=== PATIENT | male | born 1970 | race Caucasian/White ===

== ENCOUNTER 2023-11-30 05:08 | Observation (INO) ==
--- NOTE | 2023-11-27 14:56 | Anesthesiology Consultation ---
Date of Service November 27, 2023 Assessment & Plan (1) Encounter for pre-operative examination: Plan - surgery re-scheduled per PAT RN due to burn on wrist. - S/P Right TSA (09/08/23): Grade view 1, Glidescope#4, ETT 8.0 + regional at [facility]. - Per home security alarm installer on 11/22/23: No known infectious disease contacts, current infectious disease symptoms in past 10 days or COVID positive test result in the past 30 days. Chart Review Chart Review: Acceptable Risk for Surgery (pending anesthesiologist evaluation am DOS) and Patient NOT seen in Pre Admission Testing History Surgery Operation Date: 11/30/23 07:00 Proposed Procedures p T12-L1 Posterior Lumbar Decompression with Posterior Instrumentation and Fusion, L1-L2 Posterior Lumbar Decompression, with Spinal Cord Monitoring - Wilfredo Angela MD Height/Weight Height: 6 ft Weight: 121.109 kg Allergies Allergy/AdvReac Type Severity Reaction Status Date / Time No Known Allergies Allergy Verified 11/22/23 11:41 Medications Home Medications Medication Instructions Recorded Confirmed Last Taken hydroxychloroquine 200 mg tablet 200 mg PO BID 07/26/23 11/22/23 11/18/23 20:00 (Plaquenil) losartan 50 mg tablet 50 mg PO QAM 07/26/23 11/22/23 11/18/23 20:00 pregabalin 200 mg capsule 200 mg PO TID 07/26/23 11/22/23 11/18/23 20:00 tizanidine 4 mg tablet (Zanaflex) 4 mg PO BID PRN muscle spasticity 11/21/23 11/22/23 11/18/23 20:00 Past Medical History Medical History Chronic back pain Degenerative disc disease 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 Lumbar disc herniation Severe back pain > bilateral leg numbness Lumbar stenosis with neurogenic claudication Osteoarthritis Rheumatoid arthritis Past Family History Family History Other No family history of adverse response to anesthesia Past Surgical History Surgical History 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 (able to reattach left middle finger) History of tonsillectomy History of total replacement of right shoulder joint Right TSA (09/08/23): Grade view 1, Glidescope#4, ETT 8.0 + regional at [facility] S/P ACL reconstruction right S/P ACL repair left S/P arthroscopy of left shoulder S/P arthroscopy of right shoulder S/P lumbar fusion L4/L5 Social History Smoking Status: Never smoker Do You Dip or Chew Tobacco: No Hx Alcohol Use: Yes Alcohol type: beer, wine and hard liquor alcohol intake frequency: a few times a month Hx Substance Use: No substance use type: does not use Lab Results Anesthesia Preop Results Results Anesthesia Widget: WBC 5.17 K/ul (4.8-10.8) 11/06/23 Hgb 15.0 g/dl (14.0-18.0) 11/06/23 Hct 43.1 % (42.0-52.0) 11/06/23 Plt 206 K/uL (130-400) 11/06/23 Na 141 mmol/L (136-145) 11/06/23 K 3.8 mmol/L (3.5-5.1) 11/06/23 Cl 105 mmol/L (98-107) 11/06/23 CO2 29 mmol/L (21-32) 11/06/23 BUN 19 mg/dl (6-23) 11/06/23 Creat 0.94 mg/dl (0.6-1.4) 11/06/23 Glucose Level 76 mg/dl (70-99(Fasting)) 11/06/23 PT 10.6 Seconds (9.0-12.0) 11/06/23 PTT 24 Seconds (21-31) 11/06/23 INR 1.0 (0.9-1.1) 11/06/23 Blood Type A Positive 11/06/23 Antibody Screen NEGATIVE 11/06/23 Testing Electrocardiogram Date: 08/08/23 NSR at 91bpm. "Normal ECG" Chest X-Ray Date: 08/08/23 FINDINGS: PA and lateral chest radiographs are obtained. No prior studies are available for comparison at the time of dictation. The cardiomediastinal silhouette is top normal for projection. The lungs and pleural spaces are clear. There is no pneumothorax. The bony thorax appears intact. IMPRESSION: No active disease in the chest. Cervical Spine Date: 08/08/23 FINDINGS: Alignment of the cervical spine is anatomic. There is no evidence for cervical spine instability during flexion or extension. C1-C2 alignment remains anatomic. Inferior endplate of C7 is slightly obscured. Moderate multilevel degenerative disc disease and facet arthrosis is present. No fractures are identified. IMPRESSION: No evidence for cervical spine instability during flexion or extension. No fractures within the cervical spine. Moderate multilevel degenerative disc disease and facet arthrosis.
[2023-11-30] MEDS: LR 15ML/HR IV SCH (05:42)
[2023-11-30] MEDS: LR 60ML/HR IV SCH (05:59)
[2023-11-30] MEDS ORDERED: ONDANSETRON INJ 2 MG/ML 2 ML VIAL IV PRN ×2 (06:53→12:35)
[2023-11-30] MEDS ORDERED: ePHEDrine sulfate 50 MG/ML AMP IV PRN (06:53)
[2023-11-30] MEDS ORDERED: PROMETHAZINE HCL 12.5 MG in SODIUM CHLORIDE 0.9% 50 ML IV PRN (06:53)
[2023-11-30] MEDS ORDERED: ATROPINE SULFATE 0.1 MG/ML 10ML SYR IV PRN (06:53)
[2023-11-30] MEDS ORDERED: KETAMINE HCL 10MG/ML SYR ONE ×2 (06:55→10:38)
[2023-11-30] MEDS ORDERED: MIDAZOLAM HCL 1 MG/ML 2ML VIAL ONE (06:55)
[2023-11-30] MEDS ORDERED: fentaNYL citrate PF 100 MCG/2 ML VIAL ONE ×3 (06:55→12:14)
--- NOTE | 2023-11-30 07:03 | History & Physical Bridge Note ---
Date of Service November 30, 2023 T12-L1 decompression/fusion with decompression at L1-2 and L2-3 History & Physical Bridge Note I have examined the patient, reviewed the History & Physical and in the interval since the performance of the History & Physical I have noted the following changes of clinical significance: no changes noted
[2023-11-30] MEDS: ceFAZolin 3000MG 3,000 MG/72.5 ML BAG IV SCH (07:15)
[2023-11-30] MEDS ORDERED: PROPOFOL IV EMULSION 10 MG/ML 20 ML VIAL IV ONE ×16 (07:16→11:34)
[2023-11-30] MEDS ORDERED: PHENYLEPHRINE 100MCG/ML 10ML SYR IV ONE ×2 (08:18→09:52)
[2023-11-30] MEDS ORDERED: SUCCINYLCHOLINE CHLORIDE 20 MG/ML 10 ML VIAL IV ONE (08:19)
[2023-11-30] MEDS ORDERED: ROCURONIUM BROMIDE 10 MG/ML 5 ML VIAL IV ONE (08:19)
[2023-11-30] MEDS ORDERED: LIDOCAINE 2% 2 ML VIAL/AMP(20MG/ML) INFIL ONE (08:19)
[2023-11-30] MEDS ORDERED: DEXAMETHASONE SOD INJ 4 MG/ML VIAL ONE (08:55)
[2023-11-30] MEDS: BUPIVACAINE/EPINEPHRINE 0.5% MPF 1:200,000 30 ML VIAL ONE (11:55)
[2023-11-30] MEDS: VANCOMYCIN HCL 1000MG/20ML VIAL ONE (11:56)
[2023-11-30] MEDS: THROMBIN 5000 UNITS KIT ONE (11:56)
[2023-11-30] MEDS: GELATIN SPONGE 12-7MM ONE (11:56)
[2023-11-30] MEDS ORDERED: ONDANSETRON INJ 2 MG/ML 2 ML VIAL ONE (12:01)
[2023-11-30] MEDS: FLOSEAL HEMOSTATIC MATRIX 10ML TOP ONE (12:03)
[2023-11-30] MEDS ORDERED: KETOROLAC 30 MG/ML VIAL ONE (12:20)
--- NOTE | 2023-11-30 12:34 | Post Operative Brief Note ---
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
[2023-11-30] MEDS ORDERED: DO NOT ADMINISTER FLU VACCINE PRN (12:35)
[2023-11-30] MEDS ORDERED: ALUMINUM/MAGNESIUM SUSP 30 ML UDC PO PRN (12:35)
[2023-11-30] MEDS ORDERED: NALOXONE HCL 0.4 MG/1 ML VIAL/CARP IV PRN (12:35)
[2023-11-30] MEDS ORDERED: ONDANSETRON 4 MG OD TAB PO PRN (12:35)
[2023-11-30] MEDS ORDERED: HYDROmorphone INJ 0.5 MG/0.5 ML SYR IV PRN (12:35)
[2023-11-30] MEDS ORDERED: PROMETHAZINE 12.5 MG/50.5 ML BAG IV PRN (12:35)
[2023-11-30] MEDS ORDERED: LORazepam 0.5 MG in SYRINGE 0.25 ML IV PRN (12:35)
[2023-11-30] MEDS ORDERED: diphenhydrAMINE Capsule 25 MG CAP PO PRN (12:35)
[2023-11-30] MEDS ORDERED: bisacodyL 10 MG SUPP PR PRN (12:35)
[2023-11-30] MEDS ORDERED: SOD PHOSPHATE/SOD BIPHOSPHATE ENEMA 132 ML BTL PR PRN (12:35)
[2023-11-30] MEDS ORDERED: DO NOT ADMINISTER PNEUMOCOCCAL VACCINE PRN (12:35)
[2023-11-30] MEDS ORDERED: hydrOXYzine HCl 25 MG TAB PO PRN (12:35)
[2023-11-30] MEDS ORDERED: ACETAMINOPHEN 500 MG TAB PO PRN (12:35)
[2023-11-30] MEDS ORDERED: FAMOTIDINE 20 MG TAB PO PRN (12:35)
[2023-11-30] MEDS ORDERED: LORazepam 0.5 MG TAB PO PRN (12:35)
[2023-11-30] MEDS ORDERED: MAGNESIUM HYDROXIDE SUSP 30 ML UDC PO PRN (12:35)
[2023-11-30] MEDS ORDERED: METOCLOPRAMIDE HCL INJ 5 MG/ML 2 ML VIAL IV PRN (12:35)
--- NOTE | 2023-11-30 13:04 | Fluoroscopy Report ---
INTRAOPERATIVE RADIOGRAPHS CLINICAL HISTORY: Spinal fusion surgery. Fluoro time: 51 seconds Ka,r: 68.42 mGy FINDINGS: 4 spot fluoroscopic views of the thoracolumbar spine are presented. There is evidence of la minectomy and posterior fusion. The surgical levels cannot be delineated on the provided images. IMPRESSION: Intraoperative images from thoracolumbar spinal fusion surgery as above. Electronically signed by: Sander Miranda M.D. 11/30/2023 1:03 PM
[2023-11-30] MEDS: fentaNYL citrate PF 100 MCG/2 ML VIAL IV PRN (13:05)
[2023-11-30] MEDS: HYDROmorphone INJ 2 MG/ML SYR/VIAL IV PRN (13:15)
--- NOTE | 2023-11-30 13:35 | Anesthesiology Progress Note ---
Date of Service November 30, 2023 Anesthesia Post Procedure Vital Signs Vital Signs: Temp Pulse Pulse Resp BP Pulse Ox O2 Del Method 11/30/23 13:25 81 12 118/87 98 Oxymask 11/30/23 13:15 79 12 138/89 96 Oxymask 11/30/23 13:05 78 12 109/84 98 Oxymask 11/30/23 12:55 79 16 117/80 97 Oxymask 11/30/23 12:45 36.0 C L 83 14 125/74 96 Oxymask 11/30/23 05:45 36.9 C 85 20 136/88 95 Room Air O2 Flow Rate 11/30/23 13:25 4 11/30/23 13:15 4 11/30/23 13:05 6 11/30/23 12:55 6 11/30/23 12:45 6 11/30/23 05:45 Pain Intensity Medial Back: Pain Intensity: 7 Bilateral Leg: Pain Intensity: 8 Transfer of Care Handoff Completed per policy Notes Mental Status: alert / awake / arousable Patient Amnestic to Procedure: Yes Nausea / Vomiting: adequately controlled Pain: adequately controlled Airway Patency, RR, SpO2: stable & adequate BP & HR: stable & adequate Hydration State: stable & adequate Anesthetic Complications: no major complications apparent and Pt Satisfied with anesthetic care
[2023-11-30] MEDS ORDERED: tiZANidine HCL 4 MG TABLET PO PRN (14:21)
[2023-11-30] MEDS: PREGABALIN 100 MG CAP PO SCH (15:25)
--- NOTE | 2023-11-30 15:35 | Hospitalist Consultation ---
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 Lumbar spinal stenosis status post lumbar spine decompression posteriorly T12/L1-L1/L2-L2/L3 postop day 0. At this point doing well postoperatively. 2. Hypertension. Home losartan's been ordered. Will monitor blood pressure. 3. History of rheumatoid arthritis. Appears to be on Plaquenil. 4. Osteoarthritis. 5. Degenerative disc disease. Plan: A.m. labs. Home medications. Please refer to orders for further planning. Thank you for the opportunity participate in the care of Mr. Hill as he continues to convalesce his lumbar spine surgery. Will continue to follow on a daily basis and as needed as medical needs arise. History of Present Illness Reason for Consultation: Medical management Attending Physician: Wilfredo Angela MD History of Present Illness This is a 53-year-old male who presented to [facility] this morning to undergo elective orthopedic spine surgery where he underwent a T12/L1-L1/L2-L2/L3 posterior left-sided decompression. Patient tolerated procedure well without any apparent complications. The patient was admitted to the orthopedic spine surgery service and hospitalist consult was placed for medical management. 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 Lumbar disc herniation Severe back pain > bilateral leg numbness Lumbar stenosis with neurogenic claudication Osteoarthritis Rheumatoid arthritis Surgical History 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 (able to reattach left middle finger) History of tonsillectomy History of total replacement of right shoulder joint Right TSA (09/08/23): Grade view 1, Glidescope#4, ETT 8.0 + regional at [facility] S/P ACL reconstruction right S/P ACL repair left S/P arthroscopy of left shoulder S/P arthroscopy of right shoulder S/P lumbar fusion L4/L5 Family History Other No family history of adverse response to anesthesia Social History Smoking Status: Never smoker Second Hand Exposure: No; Do You Dip or Chew Tobacco: No; Tobacco Cessation Education Requested by Patient: No Hx Alcohol Use: Yes Alcohol type: beer, wine and hard liquor Hx Substance Use: No Preferred Language: Irish Communication Ability: Effective Bomb Squad Officer Required: No Beliefs That Will Affect Care: None Current Living Situation: Significant Other Other Information That Helps Us Care for You: No Feels Safe at Home: Yes Safety Concerns: Feels Safe At This Time Assistive Devices: None Review of Systems Review of Systems: A 10 point review of system was obtained and unless otherwise stated here or in history of present illness are negative and noncontributory to chief complaint. Physical Exam Physical Exam: In General: In general 53-year-old male who is status post lumbar spine surgery today. He is doing well. He has been drinking but not eaten since surgery but he is starting to get hungry. Has no specific complaints except minor postoperative pain not out of proportion to his procedure. HEENT: Normocephalic atraumatic pupils are equal round and reactive to light bilaterally. No scleral icterus no conjunctival injection external auditory canals are patent septum is in the midline nose is without discharge oral mucosa is pink and moist without lesion. NECK: Supple no rigidity no lymphadenopathy no thyromegaly no carotid bruits no JVD no masses. HEART: Regular rate and rhythm I do not appreciate any ectopy or rub. No murmur. LUNGS: Clear to auscultation bilaterally and anteriorly with no evidence of adventitious sounds/wheezes rales or rhonchi. ABDOMEN: Soft nontender, no rebound, no peritoneal signs, positive bowel sounds, no appreciable organomegaly. EXTREMITIES: Neurovascularly the lower extremities are intact. There is no significant edema. NEUROLOGICAL: Grossly intact with no focal deficit on exam. Results & Data Results & Data Vital Signs (Past 12 Hours) Vital Signs Temp Pulse Pulse Resp BP BP Pulse Ox 11/30/23 15:07 35.8 C L 80 16 133/94 99 11/30/23 14:43 36.4 C L 11/30/23 14:35 73 18 123/82 96 11/30/23 14:07 36.4 C L 79 16 122/84 96 11/30/23 13:50 76 14 117/84 96 11/30/23 13:35 36.5 C 74 12 120/94 95 11/30/23 13:25 81 12 118/87 98 11/30/23 13:15 79 12 138/89 96 11/30/23 13:05 78 12 109/84 98 11/30/23 12:55 79 16 117/80 97 11/30/23 12:45 36.0 C L 83 14 125/74 96 11/30/23 05:45 36.9 C 85 20 136/88 95 O2 Del Method O2 Flow Rate 11/30/23 15:07 Nasal Cannula 3 11/30/23 14:43 11/30/23 14:35 Nasal Cannula 5 11/30/23 14:07 Nasal Cannula 3 11/30/23 13:50 Nasal Cannula 3 11/30/23 13:35 Nasal Cannula 3 11/30/23 13:25 Oxymask 4 11/30/23 13:15 Oxymask 4 11/30/23 13:05 Oxymask 6 11/30/23 12:55 Oxymask 6 11/30/23 12:45 Oxymask 6 11/30/23 05:45 Room Air PG Care Time/CCT Total # of Minutes Spent Total Time Spent with Patient: Total time spent is greater than 50% in coordination of care (as documented) at patient's floor/unit and/or counseling patient: Coding Level of Care Code 61198 IN/OBS CONSULT LVL 4,60M Diagnoses 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
[2023-11-30] MEDS: LACTATED RINGER'S 1,000 ML IV SCH (16:11)
[2023-11-30] MEDS: ACETAMINOPHEN 1,000 MG/100 ML VIAL IV PRN (16:21)
[2023-11-30] MEDS: ceFAZolin 2000MG 2,000 MG/15 ML SYR IV SCH (18:30)
[2023-11-30] MEDS: oxyCODONE/ACETAMINOPHEN 5mg/325mg TAB PO PRN (18:38)
[2023-11-30] MEDS: HYDROXYCHLOROQUINE SULFATE 200 MG TAB PO SCH (20:15)
[2023-11-30] MEDS: DOCUSATE SODIUM/SENNA 50/8.6MG TAB PO SCH (20:15)
[2023-12-01] MEDS: POLYETHYLENE (MIRALAX) 17 GM PACK PO SCH (05:03)
--- NOTE | 2023-12-01 07:26 | Orthopedic Progress Note ---
Date of Service December 01, 2023 Subjective Patient seen and examined, he notes some incisional symptoms but definitely notes an improvement in his lower extremities. He notes he has less tingling in his feet and better strength for ambulation. Exam reveals the incision site to be unremarkable limited drainage, there is improved strength for ankle plantar dorsiflexion. Impression: Postop day 1 from posterior lumbar decompression T12-L1, L1-2 and L2-3 with improvement of preoperative symptoms. Plan: Today patient will be mobilized with physical therapy, I discussed with him operative site care and postoperative follow-up, he may be possibly discharged as soon as he clears physical therapy either today or tomorrow. Dr. Angel will cover for me from 4pm on. Review of Systems All systems reviewed & are unremarkable except as noted in HPI & below. Physical Exam . Results & Data Results & Data Laboratory Results . Diagnostic Findings . PG Care Time/CCT Total # of Minutes Spent Total Time Spent with Patient: Total time spent is greater than 50% in coordination of care (as documented) at patient's floor/unit and/or counseling patient: Coding Level of Care Code 13577 Post Operative Follow-Up
--- NOTE | 2023-12-01 07:31 | Discharge Summary ---
Date of Service December 01, 2023 Admission HPI (Per Admitting) Numbness in the lower extremities. Lumbar decompression T12-L3 on November 29. Principal Diagnosis Same as "Discharge Diagnosis" noted below under Discharge Instructions. Discharge Exam . Discharge Data Consultations 11/30/23 12:35 Consult Hospitalist Routine Procedures Performed Operation Date: 11/30/23 07:00 Actual Procedures p T12-L1,L1-L2, L2-L3 Posterior Lumbar Decompression, Spinal Cord Monitoring(Not Applicable) - Wilfredo Angela MD Ordered Studies 11/30/23 07:00 FL spine 1V any level Routine Hospital Course (1) Weakness of both lower extremities: Operative decompression T12-L3. 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 PG Care Time/CCT Total # of Minutes Spent Total Time Spent with Patient: Total time spent is greater than 50% in coordination of care (as documented) at patient's floor/unit and/or counseling patient: Discharge Plan Discharge Items Patient Disposition: Home - Self-Care Reason For Visit: Weakness of Both Legs, Herniation of Thoracolumbar Discharge Diagnosis: Thoracolumbar and lumbar stenosis, disc degeneration. Condition on Discharge: Good Activity: As commented below Lifting: No more than 10 pounds Bathing: May shower/bathe in 3 days Exercise/Sports: Wait until after follow-up appointment Weightbearing: Full weightbearing Non-emergency contact: Surgeon Call non-emergency contact if: your pain is worsening Follow-up/Referrals: PCP,NO [Primary Care Provider] - Diet: Regular Addtl Attending Provider Instructions: Follow-up in 2 weeks. Prescription for oxycodone 5 mg will be sent through the ambulatory chart. Pending Studies at Discharge: No Stand-Alone Forms: [facility], Smoking Cessation Medications and DC Order Prescriptions: Continued losartan [Cozaar] 50 mg Tablet 50 mg PO QAM hydroxychloroquine [Plaquenil] 200 mg Tablet 200 mg PO BID pregabalin [Lyrica] 200 mg Capsule 200 mg PO TID tizanidine [Zanaflex] 4 mg tablet 4 mg PO BID PRN (Reason: muscle spasticity) No Action oxycodone-acetaminophen 5-325 mg tablet 1 tab PO Q6H Qty: 20 0RF Discharge Orders: Discharge Order (Routine); Ordered 12/01/23 Ordered By: Wilfredo Angela Admission Data Admit Date/Time: 11/30/23 12:35 Attending Provider: Wilfredo Angela Admit Provider: Wilfredo Angela Primary Care Provider: PCP,NO Other Providers: Anthony Feliciano; Tony Bajwa; Freddie Bailon; Yvan Cook; Oliverio Guy; Abbey Vale; Audelia Pope; Mallory Akbar; Peggy Richard; Rasheed Jeffrey; Mich Alfaro; Ivy Quinonez; Alfredo Carmichael; Tony Win; Agustin Martinez; Blanche Rich; Abbey Ramirez; Abbey Conroy; Bety Lentz; Domenica Terrazas N; Janusz Good; Kamryn Munoz.; Arsenio Montanez; Sagar Holman; Aixa Payton; Alina Gong; Nena Childs; Naseem Mendes; Kevin Greer; Freddie Suarez; Yvan Juarez; Gifty Adam; Lelia Guzman; Samantha Dove; Pete London; Vikki Weeks
[2023-12-01] MEDS: LOSARTAN POTASSIUM 50 MG TAB PO SCH (07:42)
--- NOTE | 2023-12-01 07:50 | Operative Report ---
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 T12-L1 posterior thoracolumbar decompression (91363) 2. L1-2 posterior lumbar decompression (01705) 3. L2-3 posterior lumbar decompression (97494) She was taken the operating room and after adequate anesthesia was carefully mobilized prone on the Eligio frame. This is after monitoring had obtain baseline EMG motors. The thoracolumbar region was preprepped, fluoroscopy was brought in by marked for the area of the incision followed by prepping and draping. Midline incision was then utilized to advanced over the spinous processes and then onto either side of the spinous processes, exposing the lamina and interlaminar regions. The position was confirmed fluoroscopically, and began the procedure with removing the spinous process of T12 and exposing the interlaminar region of T12-L1. Bilateral hemilaminectomies was then performed with removal of thickened ligamentum flavum and medial aspect of the facets bilaterally. Also removal of some of the superior laminar edge of L1 decompressing the segment. I then followed this with a posterior lumbar decompression involving hemilaminectomy and decompressing the epidural fat posteriorly and ligamentum flavum at L1-2 and L2-3 without issue, left-sided approach. The decompression at T12-L1 did not remove enough facet that I thought the segment was destabilized so the option of fusion instrumentation I did not think need to be employed, for this reason the operative site was then closed after injecting local and vancomycin powder. I used 0 Vicryl sutures to close the fascial layer to the supraspinous ligament were available, additional layer of 0 Vicryl sutures and 2-0 Vicryl sutures and neri for the skin. Sterile dressing was applied, the patient tolerated procedure well. It is to note that there were no changes in the monitoring during the procedure and final run of motors did not reveal any changes. I attest to the content of the Intraoperative Record and any orders documented therein. Any exceptions are noted below.
[2023-12-01 07:51] LABS: Basophils # (auto) 0.02 K/uL (0.00-0.20); Basophils % (auto) 0.2 %; Hematocrit (blood only) 36.3 % (42.0-52.0); Hemoglobin 12.6 g/dl (14.0-18.0); Immature Granulocytes # (auto) 0.06 K/uL (0.01-0.20); Immature Granulocytes % (auto) 0.5 %; Lymphocytes # (auto) 0.95 K/uL (1.20-3.40); Lymphocytes % (auto) 8.2 %; Mean Corpuscular Hemoglobin 29.2 pg (25.0-34.0); Mean Corpuscular Hgb Conc 34.7 g/dL (32.0-36.0); Mean Corpuscular Volume 84.2 fL (80.0-100.0); Mean Platelet Volume 9.6 fL (9.4-12.4); Monocytes # (auto) 1.12 K/uL (0.11-0.59); Monocytes % (auto) 9.7 %; Neutrophils # (auto) 9.43 K/uL (1.40-6.50); Neutrophils % (auto) 81.4 %; Platelet Count 209 K/uL (130-400); RDW Coefficient of Variation 12.1 % (11.5-14.5); RDW Standard Deviation 37.2 fL (36.4-46.3); Red Blood Count 4.31 M/uL (4.70-6.10); White Blood Count 11.58 K/ul (4.8-10.8)
[2023-12-01 08:04] LABS: Albumin Globulin Ratio 1.9 (0.9-2); Albumin Level 3.9 gm/dl (3.4-5.0); BUN Creatinine Ratio 19.3 (10-20); Bilirubin,Total 0.4 mg/dl (0.2-1.0); Calcium 8.9 mg/dl (8.6-10.3); Est GFR (African American) 112.1 ml/min; Est GFR (Non-African American) 96.7 ml/min; Globulin 2.1 gm/dl (2.5-4.0); Magnesium 1.8 mg/dl (1.7-2.4); Potassium 4.5 mmol/L (3.5-5.1)
--- NOTE | 2023-12-01 09:41 | Hospitalist Progress Note ---
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 Lumbar spinal stenosis status post lumbar spine decompression posteriorly T12/L1-L1/L2-L2/L3 postop day 0. At this point doing well postoperatively. 2. Hypertension. Home losartan's been ordered - continue Losartan at home, monitor BP. 3. History of rheumatoid arthritis. Appears to be on Plaquenil. 4. Osteoarthritis. 5. Degenerative disc disease. Plan Okay from medical standpoint to return home today 11/30. Admission and Anticipated Discharge Date Admission Date: November 30, 2023 Subjective Patient seen and examined this morning. Patient doing well and has no complaints. Patient states he does monitor BP at home often. He is to return home today. Physical Exam Constitutional: WD/WN, vitals as above Eyes: PERRL, conjunctivae normal, anicteric sclerae Respiratory: normal respiratory effort, lungs clear to auscultation Cardiovascular: RRR, no murmur, no edema Skin: no rashes, warm and dry Psychiatric: A+Ox3, euthymic affect Results & Data Results & Data Vital Signs (Past 12 Hours) Vital Signs Temp Pulse Resp BP Pulse Ox O2 Del Method 12/01/23 09:11 36.8 C 85 18 141/81 H 94 Room Air 12/01/23 07:33 Room Air 12/01/23 05:03 36.7 C 91 H 16 125/74 98 Room Air 12/01/23 00:11 37.0 C 99 H 16 115/68 97 Room Air PG Care Time/CCT Total # of Minutes Spent Total Time Spent with Patient: Total time spent is greater than 50% in coordination of care (as documented) at patient's floor/unit and/or counseling patient: Coding Level of Care Code 64971 SUB INP/OBS CARE 2/35MIN Diagnoses 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
[2023-12-01 15:51] VITALS: BP 130/72; PULSE 89; RESP 18; TEMP 97.7; O2SAT 99
== END 2023-12-01 18:09 | disposition home or self-care (01) ==
LOC: ASU 05:08 → 3W 05:08

== ENCOUNTER 2024-04-08 06:10 | Observation (INO) ==
--- NOTE | 2024-03-18 15:06 | Anesthesiology Consultation ---
Date of Service March 18, 2024 Assessment & Plan (1) Encounter for pre-operative examination: - Infectious disease screening: Per assessment on 03/18/24- No known recent infectious disease contacts or current infectious disease symptoms. - Recent surgery/anesthesia hx: * T12-L3 Posterior Lumbar Decompression (11/30/23): [facility], Grade view 1, López#2, ETT 7.5, "soft bite block" * Right TSA (09/08/23): Grade view 1, Glidescope#4, ETT 8.0 + regional at [facility] Chart Review Chart Review: Acceptable Risk for Surgery and Patient seen in Pre Admission Testing Teaching & Discussion Pre-Anesthesia Teaching/Discussion Notes: Instructed NPO after midnight before surgery,except medications with 15 cc of water. Medication instructions provided according to the PAT guidelines. History Surgery Operation Date: 03/27/24 07:00 Proposed Procedures p L2-L3 Revision Decompression, L5-S1 Transforaminal Lumbar Interbody Fusion with Posterior Instrumentation, with Spinal Cord Monitoring - Wilfredo Angela MD Height/Weight Height: 6 ft Weight: 103.7 kg Allergies Allergy/AdvReac Type Severity Reaction Status Date / Time No Known Allergies Allergy Verified 03/11/24 14:28 Medications Home Medications Medication Instructions Recorded Confirmed Last Taken hydroxychloroquine 200 mg tablet 200 mg PO BID 07/26/23 03/11/24 11/29/23 19:30 (Plaquenil) losartan 50 mg tablet (Cozaar) 50 mg PO QAM 07/26/23 03/11/24 11/29/23 08:00 pregabalin 200 mg capsule (Lyrica) 200 mg PO TID 07/26/23 03/11/24 11/29/23 19:30 pregabalin 150 mg capsule (Lyrica) 150 mg PO BID #60 caps 02/28/24 03/11/24 Unknown tizanidine 4 mg tablet 4 mg PO BID PRN muscle spasticity 03/11/24 03/11/24 Unknown #30 tabs Past Medical History Medical History Chronic back pain Degenerative disc disease Dropfoot B/L Lumbar disc herniation Severe back pain > bilateral leg numbness Lumbar stenosis with neurogenic claudication Lumbosacral radiculopathy Numbness of lower extremity B/L, able to ambulate using crutches Osteoarthritis Rheumatoid arthritis Exercise / Class Metabolic Activity III < 4 Walking/Shop/Light housework Past Family History Family History Other No family history of adverse response to anesthesia Past Surgical History Surgical History 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 (able to reattach left middle finger) History of lumbar surgery T12-L3 Posterior Lumbar Decompression (11/30/23): [facility], Grade view 1, López#2, ETT 7.5, "soft bite block" History of tonsillectomy History of total replacement of right shoulder joint Right TSA (09/08/23): Grade view 1, Glidescope#4, ETT 8.0 + regional at [facility] S/P ACL reconstruction right/left S/P arthroscopy of left shoulder S/P arthroscopy of right shoulder S/P lumbar fusion L4/L5 [place] teeth removed Past Anesthesia History No Hx of Anesthesia Complications and No Family Hx of Anesthesia Complications History of PONV No Hx of PONV and No Hx of Motion Sickness Social History Smoking Status: Never smoker Do You Dip or Chew Tobacco: No Hx Alcohol Use: Yes Alcohol type: beer, wine and hard liquor alcohol intake frequency: a few times a month substance use type: does not use Review of Systems Patient denies chest pain, shortness of breath, dyspnea on exertion, fever, chills, cough, wheezing, palpitations. Physical Exam Vital Signs BP 110/69 P 99 TEMP 98.7 SP02 95%RA RESP 18 Physical Full cervical extension range of motion. Full TMJ range of motion. TMD 3 finger breaths Mallampati Score II Dentition: intact Lungs: clear throughout to auscultation Cardiac: regular rate and rhythm, no murmurs noted Spine: normal Carotid arteries: negative bruit Extremities: no LE edema, left second digit partial amputation (traumatic) Lab Results Anesthesia Preop Results Results Anesthesia Widget: WBC 6.78 K/ul (4.8-10.8) 03/18/24 Hgb 16.7 g/dl (14.0-18.0) 03/18/24 Hct 49.0 % (42.0-52.0) 03/18/24 Plt 232 K/uL (130-400) 03/18/24 Na 143 mmol/L (136-145) 03/18/24 K 4.2 mmol/L (3.5-5.1) 03/18/24 Cl 107 mmol/L (98-107) 03/18/24 CO2 31 mmol/L (21-32) 03/18/24 BUN 14 mg/dl (6-23) 03/18/24 Creat 0.82 mg/dl (0.6-1.4) 03/18/24 Glucose Level 83 mg/dl (70-99(Fasting)) 03/18/24 PT 11.0 Seconds (9.0-12.0) 03/18/24 PTT 25 Seconds (21-31) 03/18/24 INR 1.0 (0.9-1.1) 03/18/24 Blood Type A Positive 03/18/24 Antibody Screen NEGATIVE 03/18/24 Testing Electrocardiogram Date: 08/08/23 NSR at 91bpm. "Normal ECG" Chest X-Ray Date: 08/08/23 FINDINGS: PA and lateral chest radiographs are obtained. No prior studies are available for comparison at the time of dictation. The cardiomediastinal silhouette is top normal for projection. The lungs and pleural spaces are clear. There is no pneumothorax. The bony thorax appears intact. IMPRESSION: No active disease in the chest. Cervical Spine Date: 08/08/23 FINDINGS: Alignment of the cervical spine is anatomic. There is no evidence for cervical spine instability during flexion or extension. C1-C2 alignment remains anatomic. Inferior endplate of C7 is slightly obscured. Moderate multilevel degenerative disc disease and facet arthrosis is present. No fractures are identified. IMPRESSION: No evidence for cervical spine instability during flexion or extension. No fractures within the cervical spine. Moderate multilevel degenerative disc disease and facet arthrosis.
[~2024-04-08 06:10] MED LIST: ACETAMINOPHEN 500 MG TAB PO SCH; GABAPENTIN 600 MG DOSE PO SCH; LR 15ML/HR IV SCH; LR 60ML/HR IV SCH; ceFAZolin 2000MG 2,000 MG/15 ML SYR IV SCH
[2024-04-08] MEDS ORDERED: ATROPINE SULFATE 0.1 MG/ML 10ML SYR IV PRN (06:49)
[2024-04-08] MEDS ORDERED: HYDROmorphone INJ 2 MG/ML SYR/VIAL IV PRN (06:49)
[2024-04-08] MEDS ORDERED: ONDANSETRON INJ 2 MG/ML 2 ML VIAL IV PRN ×2 (06:49→18:54)
[2024-04-08] MEDS ORDERED: ePHEDrine sulfate 50 MG/ML AMP IV PRN (06:49)
[2024-04-08] MEDS ORDERED: fentaNYL citrate PF 100 MCG/2 ML VIAL IV PRN (06:49)
[2024-04-08] MEDS ORDERED: MIDAZOLAM HCL 1 MG/ML 2ML VIAL ONE (06:55)
[2024-04-08] MEDS ORDERED: fentaNYL citrate PF 100 MCG/2 ML VIAL ONE (06:55)
[2024-04-08] MEDS ORDERED: PROPOFOL IV EMULSION 10 MG/ML 20 ML VIAL IV ONE (06:55)
[2024-04-08] MEDS ORDERED: ROCURONIUM BROMIDE 10 MG/ML 5 ML VIAL IV ONE ×2 (06:55→09:42)
[2024-04-08] MEDS: LR 15ML/HR IV SCH (06:57)
[2024-04-08] MEDS: LR 60ML/HR IV SCH (06:57)
[2024-04-08] MEDS: ACETAMINOPHEN 500 MG TAB PO SCH (06:58)
[2024-04-08] MEDS: GABAPENTIN 600 MG DOSE PO SCH (06:58)
--- NOTE | 2024-04-08 07:26 | History & Physical Bridge Note ---
Date of Service April 08, 2024 History & Physical Bridge Note I have examined the patient, reviewed the History & Physical and in the interval since the performance of the History & Physical I have noted the following changes of clinical significance: no changes noted
[2024-04-08] MEDS: ceFAZolin 2000MG 2,000 MG/15 ML SYR IV SCH (07:43)
[2024-04-08] MEDS ORDERED: ePHEDrine sulfate 50 MG/ML AMP ONE (08:02)
[2024-04-08] MEDS ORDERED: HYDROmorphone INJ 2 MG/ML SYR/VIAL ONE ×3 (08:28→13:48)
[2024-04-08] MEDS ORDERED: ONDANSETRON INJ 2 MG/ML 2 ML VIAL ONE ×2 (08:33→14:59)
[2024-04-08] MEDS ORDERED: DEXAMETHASONE SOD INJ 4 MG/ML VIAL ONE ×2 (08:33→17:49)
[2024-04-08] MEDS: ceFAZolin 2000MG 2,000 MG/15 ML SYR IV ONE ×2 (12:25→16:25)
[2024-04-08] MEDS ORDERED: ceFAZolin 330 MG/ML 1 GM VIAL ONE ×3 (13:18→15:55)
[2024-04-08] MEDS: THROMBIN 5000 UNITS KIT ONE (13:38)
[2024-04-08] MEDS ORDERED: DexMEDEtomidine HCL IV 100 MCG/ML VIAL IV ONE (15:11)
[2024-04-08] MEDS ORDERED: ACETAMINOPHEN 1000 MG/100 ML IV IV ONE (16:51)
[2024-04-08] MEDS ORDERED: PHENYLEPHRINE HCL 10 MG/ML VIAL ONE (17:15)
[2024-04-08] MEDS ORDERED: NEOSTIGMINE METHYLSULFATE 1 MG/ML 10ML VIAL ONE (17:59)
[2024-04-08] MEDS ORDERED: GLYCOPYRROLATE 0.2 MG/ML VIAL ONE (17:59)
[2024-04-08] MEDS: GELATIN SPONGE 12-7MM ONE (18:05)
[2024-04-08] MEDS: BUPIVACAINE/EPINEPHRINE 0.5% MPF 1:200,000 30 ML VIAL ONE (18:05)
[2024-04-08] MEDS: VANCOMYCIN HCL 1000MG/20ML VIAL ONE ×2 (18:06→18:07)
[2024-04-08] MEDS: FLOSEAL HEMOSTATIC MATRIX 10ML TOP ONE (18:07)
[2024-04-08] MEDS ORDERED: LORazepam 0.5 MG TAB PO PRN (18:54)
[2024-04-08] MEDS ORDERED: DO NOT ADMINISTER PNEUMOCOCCAL VACCINE PRN (18:54)
[2024-04-08] MEDS ORDERED: bisacodyL 10 MG SUPP PR PRN (18:54)
[2024-04-08] MEDS ORDERED: hydrOXYzine HCl 25 MG TAB PO PRN (18:54)
[2024-04-08] MEDS ORDERED: LORazepam 2 MG/1 ML VIAL IV PRN (18:54)
[2024-04-08] MEDS ORDERED: MAGNESIUM HYDROXIDE SUSP 30 ML UDC PO PRN (18:54)
[2024-04-08] MEDS ORDERED: diphenhydrAMINE Capsule 25 MG CAP PO PRN (18:54)
[2024-04-08] MEDS ORDERED: ONDANSETRON 4 MG OD TAB PO PRN (18:54)
[2024-04-08] MEDS ORDERED: ALUMINUM/MAGNESIUM SUSP 30 ML UDC PO PRN (18:54)
[2024-04-08] MEDS ORDERED: DO NOT ADMINISTER FLU VACCINE PRN (18:54)
[2024-04-08] MEDS ORDERED: SOD PHOSPHATE/SOD BIPHOSPHATE ENEMA 132 ML BTL PR PRN (18:54)
[2024-04-08] MEDS ORDERED: ACETAMINOPHEN 1,000 MG/100 ML VIAL IV PRN (18:54)
[2024-04-08] MEDS ORDERED: NALOXONE HCL 0.4 MG/1 ML VIAL/CARP IV PRN (18:54)
[2024-04-08] MEDS ORDERED: ACETAMINOPHEN 500 MG TAB PO PRN (18:54)
[2024-04-08] MEDS ORDERED: METOCLOPRAMIDE HCL INJ 5 MG/ML 2 ML VIAL IV PRN (18:54)
[2024-04-08] MEDS ORDERED: FAMOTIDINE 20 MG TAB PO PRN (18:54)
[2024-04-08] MEDS ORDERED: PROMETHAZINE 12.5 MG/50.5 ML BAG IV PRN (18:54)
--- NOTE | 2024-04-08 18:54 | Post Operative Brief Note ---
PG Immediate Post Op with CF Date of Surgery April 08, 2024 Pre & Post Diagnosis Operation Date: 04/08/24 07:30 Pre-Op Diagnosis: Lumbosacral Radiculopathy Post-Op Diagnosis: Lumbosacral Radiculopathy I identified the patient and participated in the time-out.: Yes Procedure Operation Date: 04/08/24 07:30 Actual Procedures p L2-L3 Revision Decompression, L5-S1 Transforaminal Lumbar Interbody Fusion with Posterior Instrumentation, with Spinal Cord Monitoring(Not Applicable) - Wilfredo Angela MD Surgeon Wilfredo Angela MD Marine Structural Designer Oliverio Bentley Estimated Blood Loss 750 Findings Consistent with Post-Op Diagnosis Specimens Specimen Description: none per surgeon Drains Freeman Catheter
[2024-04-08] MEDS ORDERED: tiZANidine HCL 4 MG TABLET PO PRN (18:58)
[2024-04-08 19:02] LABS: Basophils # (auto) 0.02 K/uL (0.00-0.20); Basophils % (auto) 0.2 %; Hematocrit (blood only) 45.5 % (42.0-52.0); Hemoglobin 15.4 g/dl (14.0-18.0); Immature Granulocytes # (auto) 0.08 K/uL (0.01-0.20); Immature Granulocytes % (auto) 0.6 %; Lymphocytes # (auto) 0.92 K/uL (1.20-3.40); Mean Corpuscular Hemoglobin 29.5 pg (25.0-34.0); Mean Corpuscular Hgb Conc 33.8 g/dL (32.0-36.0); Mean Corpuscular Volume 87.2 fL (80.0-100.0); Mean Platelet Volume 9.8 fL (9.4-12.4); Monocytes # (auto) 0.52 K/uL (0.11-0.59); Neutrophils # (auto) 11.61 K/uL (1.40-6.50); Neutrophils % (auto) 88.2 %; Platelet Count 314 K/uL (130-400); RDW Coefficient of Variation 13.3 % (11.5-14.5); RDW Standard Deviation 42.8 fL (36.4-46.3); Red Blood Count 5.22 M/uL (4.70-6.10); White Blood Count 13.15 K/ul (4.8-10.8)
--- NOTE | 2024-04-08 19:29 | Anesthesiology Progress Note ---
Date of Service April 08, 2024 Anesthesia Post Procedure Vital Signs Vital Signs: Temp Pulse Pulse Resp BP BP Pulse Ox 04/08/24 19:05 85 14 134/78 95 04/08/24 18:55 79 13 136/79 99 04/08/24 18:45 74 17 136/82 100 04/08/24 18:39 36.5 C 75 13 145/88 H 100 04/08/24 06:44 36.5 C 73 20 110/83 93 O2 Del Method O2 Flow Rate 04/08/24 19:05 Room Air 04/08/24 18:55 Oxymask 6 04/08/24 18:45 Oxymask 6 04/08/24 18:39 Oxymask 10 04/08/24 06:44 Room Air Pain Intensity Bilateral Back: Pain Intensity: 3 Transfer of Care Handoff Completed per policy Notes Mental Status: alert / awake / arousable and participated in evaluation Patient Amnestic to Procedure: Yes Nausea / Vomiting: adequately controlled Pain: adequately controlled Airway Patency, RR, SpO2: stable & adequate BP & HR: stable & adequate Hydration State: stable & adequate Anesthetic Complications: no major complications apparent and Pt Satisfied with anesthetic care Notes: pt with very mild blurry vision but otherwise doing well. primary team will need to monitor during his hospital stay.
--- NOTE | 2024-04-08 20:51 | Consultation ---
Date of Consultation April 08, 2024 Assessment & Plan (1) Post-operative state: 53yo male s/p L2-3 revision decompression, L5-S1 transforaminal lumbar interbody fusion performed today by Dr. Angela. Surgery well tolerated. Pain well controlled. No complaints at this time. -Management of pain, nausea and bowel regimen per primary team -Neurovascular checks -NSS at 100mL/hr x 1 additional liter ordered - nursing reported low UOP -Continue home Lyrica and Tizanidine -PT/OT evaluation and discharge planning per primary team (2) Hypertension: Blood pressure well controlled -Resume home Losartan -Continue to monitor blood pressure (3) Rheumatoid arthritis: Chronic. Well controlled -Continue Hydroxychloroquine 200mg po BID Plan Thank you for this consultation. History of Present Illness Reason for Consultation: medical management Attending Physician: Wilfredo Angela MD History of Present Illness Gregg Rendon is a pleasant 53yo male with history of lumbosacral radiculopathy s/p L2-L3 revision decompression, L5-S1 transforaminal lumbar interbody fusion performed by Dr. Angela earlier today. Surgery was well tolerated, no immediate complications identified, UJC=328hC. Patient seen in his room, no complaints at present. He denies pain, nausea or vomiting. He has not yet eaten. Allergies Allergy/AdvReac Type Severity Reaction Status Date / Time No Known Allergies Allergy Verified 04/08/24 06:40 Home Medications Medication Instructions Recorded Confirmed Type hydroxychloroquine 200 mg tablet 200 mg PO BID 07/26/23 04/08/24 History (Plaquenil) losartan 50 mg tablet (Cozaar) 50 mg PO QAM 07/26/23 04/08/24 History pregabalin 200 mg capsule (Lyrica) 200 mg PO TID 07/26/23 04/08/24 History pregabalin 150 mg capsule (Lyrica) 150 mg PO BID #60 caps 02/28/24 04/08/24 Rx tizanidine 4 mg tablet 4 mg PO BID PRN muscle spasticity 03/11/24 04/08/24 Rx #30 tabs tramadol 50 mg tablet 50 mg PO TID PRN pain #30 tabs 03/27/24 04/08/24 Rx Patient History Medical History Lumbosacral radiculopathy Dropfoot B/L Numbness of lower extremity B/L, able to ambulate using crutches Lumbar stenosis with neurogenic claudication Rheumatoid arthritis Lumbar disc herniation Severe back pain > bilateral leg numbness Osteoarthritis Degenerative disc disease Chronic back pain Surgical History [place] teeth removed History of lumbar surgery T12-L3 Posterior Lumbar Decompression (11/30/23): [facility], Grade view 1, López#2, ETT 7.5, "soft bite block" History of total replacement of right shoulder joint Right TSA (09/08/23): Grade view 1, Glidescope#4, ETT 8.0 + regional at [facility] History of tonsillectomy 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 (able to reattach left middle finger) S/P arthroscopy of right shoulder S/P arthroscopy of left shoulder S/P ACL reconstruction right/left S/P lumbar fusion L4/L5 Family History Other No family history of adverse response to anesthesia Social History Smoking Status: Never smoker Second Hand Exposure: Yes (in the past); Do You Dip or Chew Tobacco: No; Hx Alcohol Use: Yes Alcohol type: beer, wine and hard liquor Preferred Language: Vietnamese Communication Ability: Effective Fiber Locking Supervisor Required: No Beliefs That Will Affect Care: None Current Living Situation: Significant Other Feels Safe at Home: Yes Safety Concerns: Feels Safe At This Time Assistive Devices: Crutches and Glasses Assistive Devices Comment: reading glasses Physical Exam Physical Exam: General: patient resting comfortably, NAD, non-toxic in appearance, AA&O x 4 Skin: warm, dry, intact, no rashes or lesions HEENT: NC/AT, PERRL, EOMI, anicteric sclera, conjunctiva without injection, external ear normal to inspection and nontender, nares patent, moist mucus membranes, dentition intact, no oropharyngeal lesions, neck supple, trachea midline, no LAD, no thyromegaly, no JVD Heart: +S1/S2, regular, no m/r/g Lungs: equal air entry bilaterally, no rales/rhonchi/wheezes Abd: +BS, soft, NT/ND, no masses/organomegaly/ascites Ext: warm, 2+ pulses in UE/LE bilaterally, no clubbing/cyanosis or edema Neuro: nonfocal, patient AA&O x 4, speech intact, no facial droop, moving all extremities on command with equal strength 5/5 Results & Data Vital Signs (Past 12 Hours) Vital Signs Temp Pulse Pulse Resp BP Pulse Ox O2 Del Method 04/08/24 20:10 36.4 C L 82 18 108/61 96 Room Air 04/08/24 19:40 36.7 C 84 16 122/82 97 Room Air 04/08/24 19:35 36.8 C 87 19 145/76 H 97 Room Air 04/08/24 19:25 91 H 15 110/80 93 Room Air 04/08/24 19:15 87 13 130/77 89 L Room Air 04/08/24 19:05 85 14 134/78 95 Room Air 04/08/24 18:55 79 13 136/79 99 Oxymask 04/08/24 18:45 74 17 136/82 100 Oxymask 04/08/24 18:39 36.5 C 75 13 145/88 H 100 Oxymask O2 Flow Rate 04/08/24 20:10 04/08/24 19:40 04/08/24 19:35 04/08/24 19:25 04/08/24 19:15 04/08/24 19:05 04/08/24 18:55 6 04/08/24 18:45 6 04/08/24 18:39 10 Laboratory Results Laboratory Results WBC 13.15 K/ul (4.8-10.8) H 04/08/24 18:49 RBC 5.22 M/uL (4.70-6.10) 04/08/24 18:49 Hgb 15.4 g/dl (14.0-18.0) 04/08/24 18:49 Hct 45.5 % (42.0-52.0) 04/08/24 18:49 MCV 87.2 fL (80.0-100.0) 04/08/24 18:49 MCH 29.5 pg (25.0-34.0) 04/08/24 18:49 MCHC 33.8 g/dL (32.0-36.0) 04/08/24 18:49 RDW Std Deviation 42.8 fL (36.4-46.3) 04/08/24 18:49 RDW Coeff of Cosme 13.3 % (11.5-14.5) 04/08/24 18:49 Plt Count 314 K/uL (130-400) 04/08/24 18:49 MPV 9.8 fL (9.4-12.4) 04/08/24 18:49 Immature Gran % (Auto) 0.6 % 04/08/24 18:49 Neut % (Auto) 88.2 % 04/08/24 18:49 Lymph % (Auto) 7.0 % 04/08/24 18:49 Crockett % (Auto) 4.0 % 04/08/24 18:49 Eos % (Auto) 0.0 % 04/08/24 18:49 Baso % (Auto) 0.2 % 04/08/24 18:49 Neut # (Auto) 11.61 K/uL (1.40-6.50) H 04/08/24 18:49 Lymph # (Auto) 0.92 K/uL (1.20-3.40) L 04/08/24 18:49 [place]ckett # (Auto) 0.52 K/uL (0.11-0.59) 04/08/24 18:49 Eos # (Auto) 0.00 K/uL (0.00-0.50) 04/08/24 18:49 Baso # (Auto) 0.02 K/uL (0.00-0.20) 04/08/24 18:49 Immature Gran # (Auto) 0.08 K/uL (0.01-0.20) 04/08/24 18:49 PG Care Time/CCT Total # of Minutes Spent Total Time Spent with Patient: Total time spent is greater than 50% in coordination of care (as documented) at patient's floor/unit and/or counseling patient: Coding Level of Care Code 02530 IN/OBS CONSULT LVL 3,45M Diagnoses Post-operative state Z98.890 Hypertension I10 Rheumatoid arthritis M06.9
[2024-04-08] MEDS ORDERED: SODIUM CHLORIDE 0.9% 1,000 ML IV SCH (21:00)
[2024-04-08] MEDS: SODIUM CHLORIDE 0.9% 1,000 ML IV SCH (21:13)
[2024-04-08] MEDS: PREGABALIN 100 MG CAP PO SCH (21:13)
[2024-04-08] MEDS: DOCUSATE SODIUM/SENNA 50/8.6MG TAB PO SCH (21:13)
[2024-04-08] MEDS: HYDROXYCHLOROQUINE SULFATE 200 MG TAB PO SCH (21:13)
[2024-04-08] MEDS: oxyCODONE/ACETAMINOPHEN 5mg/325mg TAB PO PRN (21:17)
[2024-04-08] MEDS: HYDROmorphone INJ 0.5 MG/0.5 ML SYR IV PRN (22:17)
[2024-04-09] MEDS: ceFAZolin 2000MG 2,000 MG/15 ML SYR IV SCH (00:08)
[2024-04-09] MEDS: POLYETHYLENE (MIRALAX) 17 GM PACK PO SCH (05:24)
--- NOTE | 2024-04-09 08:11 | Fluoroscopy Report ---
FL lumbar spine 2-3V CLINICAL HISTORY: L2-L3 REVISION,L5-S1 TF LUMBAR INTERBODY FUSION COMPARISON STUDY: MRI 02/21/2024 FLUOROSCOPY TIME: 106.2 seconds FLUOROSCOPY IMAGES: 8 EXPOSURE DOSE: 72.64 mGy FINDINGS: Posterior interbody rods and screw fusion hardware at L4-L5 noted on the initial images. Th e final images demonstrate removal of the L4 pedicle screws with posterior interbody vinny and screw fu abdulkadir at L5-S1 along with discectomy. Retractors are present along with a posterior operative bed surg ical sponge. Note that the images were submitted following completion of the surgery. IMPRESSION: Fluoroscopic assistance as above. ACT 112: Negative or not required by law. Electronically signed by: Thomas Florez M.D. 04/09/2024 8:10 AM
[2024-04-09] MEDS: LOSARTAN POTASSIUM 50 MG TAB PO SCH (08:37)
--- NOTE | 2024-04-09 09:21 | Hospitalist Progress Note ---
Date of Service April 09, 2024 Assessment & Plan (1) Post-operative state: Plan: 53yo male s/p L2-3 revision decompression, L5-S1 transforaminal lumbar interbody fusion performed today by Dr. Angela. Surgery well tolerated. Pain well controlled. No complaints at this time. -Management of pain, nausea and bowel regimen per primary team -Continue home Lyrica and Tizanidine -PT/OT evaluation and discharge planning per primary team EBL 750 - hgb 15.4 --> 13.6 likely combination of acute blood loss anemia and dilutional BMP reviewed - no acute issues Can use ice/heat prn for chest discomfort. (2) Hypertension: Plan: Blood pressure well controlled -Resume home Losartan -Continue to monitor blood pressure (3) Rheumatoid arthritis: Plan: Chronic. Well controlled -Continue Hydroxychloroquine 200mg po BID Plan dispo: medically stable. Thank you for allowing us to participate in the care of this patient, medicine will sign off. please reach out with any new questions or concerns Admission and Anticipated Discharge Date Admission Date: April 08, 2024 Supervising Physician Co-Signing Physician Notes Attending Attestation - Chart reviewed, care plan d/w JENNIFER Gong. I agree w/ the leon components of her documentation. Tony Bajwa MD Subjective Patient seen sitting up in bed, reports pain on stomach/chest is worse than his back pain. Reports he was on the OR table for 10 hours. passing gas since surgery good appetite. Review of Systems Review of Systems: All systems reviewed & are unremarkable except as noted in Subjective Physical Exam Physical Exam: General: NAD, VS as above Resp: normal respiratory effort, lungs clear to auscultation CV: RRR, no murmur, Chest: bilateral redness over lateral sides of chest, more tender to palpation - suspect from OR table Abd: normal bowel sounds, non tender, no hepatosplenomegaly Extremities: Moves all extremities, able to wiggle toes bilaterally Back: dressing c/d/i, no shadowing Neuro: A&O x3, Skin: intact, no lesions noted Results & Data Results & Data Vital Signs (Past 12 Hours) Vital Signs Temp Pulse Resp BP Pulse Ox O2 Del Method 04/09/24 07:39 97.7 F 83 16 120/73 97 Room Air 04/09/24 03:10 98.1 F 90 18 126/71 97 Room Air 04/08/24 23:12 97.7 F 94 H 18 101/63 98 Room Air 04/08/24 21:38 98.1 F 93 H 18 135/74 98 Room Air Laboratory Results CBC and chemistry reviewed PG Care Time/CCT Total # of Minutes Spent Total Time Spent with Patient: Total time spent is greater than 50% in coordination of care (as documented) at patient's floor/unit and/or counseling patient: Coding Level of Care Code 66142 SUB INP/OBS CARE 2/35MIN Diagnoses Post-operative state Z98.890 Hypertension I10 Rheumatoid arthritis M06.9
[2024-04-09 10:13] LABS: Hematocrit (blood only) 41.7 % (42.0-52.0); Hemoglobin 13.6 g/dl (14.0-18.0); Mean Corpuscular Hemoglobin 28.8 pg (25.0-34.0); Mean Corpuscular Hgb Conc 32.6 g/dL (32.0-36.0); Mean Corpuscular Volume 88.3 fL (80.0-100.0); Mean Platelet Volume 9.9 fL (9.4-12.4); Platelet Count 280 K/uL (130-400); RDW Coefficient of Variation 13.4 % (11.5-14.5); RDW Standard Deviation 43.5 fL (36.4-46.3); Red Blood Count 4.72 M/uL (4.70-6.10); White Blood Count 13.36 K/ul (4.8-10.8)
[2024-04-09 10:24] LABS: Calcium 8.3 mg/dl (8.6-10.3); Creatinine Clr Calc Pharmacy 126.8 ml/min; Potassium 4.1 mmol/L (3.5-5.1)
[2024-04-09 18:10] VITALS: RESP 18
[2024-04-09 19:16] VITALS: TEMP 99
--- NOTE | 2024-04-10 06:15 | Electrocardiogram Report ---
Test Reason : Blood Pressure : */* mmHG Vent. Rate : 85 BPM Atrial Rate : 85 BPM P-R Int : 148 ms QRS Dur : 88 ms QT Int : 366 ms P-R-T Axes : 30 2 12 degrees QTcB Int : 435 ms Normal sinus rhythm Normal ECG When compared with ECG of 08-Aug-2023 10:49, No significant change was found Confirmed by Edilson Murray ([id number]) on 04/10/2024 6:15:16 AM Referred By: Wilfredo Angela Confirmed By: Edilson Murray
[2024-04-10 07:50] VITALS: BP 110/68; PULSE 78; O2SAT 96
--- NOTE | 2024-04-10 08:14 | Orthopedic Progress Note ---
Date of Service April 10, 2024 Subjective Patient seen and examined, there is continued slow improvement with still some pain in incisional nature, but improvement in lower extremity symptoms versus preoperative. Motor intact in the lower extremities. Impression/plan: Postoperative day 2 from revision decompression L2-3, L5-S1 TLIF with posterior instrumentation fusion, removal of instrumentation L4-5. Will discharge this morning with follow-up in 2 weeks. Review of Systems All systems reviewed & are unremarkable except as noted in HPI & below. Physical Exam . Results & Data Results & Data Laboratory Results . Diagnostic Findings . PG Care Time/CCT Total # of Minutes Spent Total Time Spent with Patient: Total time spent is greater than 50% in coordination of care (as documented) at patient's floor/unit and/or counseling patient: Coding Level of Care Code 45516 Post Operative Follow-Up
--- NOTE | 2024-04-10 09:19 | Operative Report ---
PG Post Operative Report Pre & Post Diagnosis Operation Date: 04/08/24 07:30 Pre-Op Diagnosis: Lumbosacral Radiculopathy Post-Op Diagnosis: Lumbosacral Radiculopathy I identified the patient and participated in the time-out.: Yes Procedure Operation Date: 04/08/24 07:30 Actual Procedures p L2-L3 Revision Decompression, L5-S1 Transforaminal Lumbar Interbody Fusion with Posterior Instrumentation, with Spinal Cord Monitoring(Not Applicable) - Wilfredo Angela MD Surgeon Wilfredo Angela MD Assessment Coordinator Oliverio Bentley Estimated Blood Loss 750 Findings Consistent with Post-Op Diagnosis Specimens None. Description of Procedure 1. L5-S1 posterior interbody fusion with laminectomy with posterior fusion. (02220) 2. L5-S1 insertion of interbody device, NuVasive modulus TL F/O 10 x 10 x 30 mm 4 degrees. (79716) 3. L5-S1 posterior nonsegmental instrumentation, NuVasive reline. (06204) 4. L2-3 revision lumbar decompression/laminectomy. (64096) 5. Removal of nonsegmental instrumentation L4-5 with inspection of arthrodesis. ([id number]) The patient was taken to the operating room after adequate anesthesia was carefully positioned prone on the Eligio frame checked for positioning. After doing so, preprepped was performed lumbar region, fluoroscopy was brought in to look for the area of the incision ranging from L2-S1. Prep was performed, began the incision with a midline and carried out laterally to expose the L2-3 interspace region along with the instrumentation at L4-5 and then to the area of L5-S1. I encountered significant amount of scar tissue in all regions and also notably over the prior hardware. Once the exposure was completed, I then every attempted to remove the instrumentation, this was prior [facility], the instrumentation utilized provide limited ability to remove the instrumentation, this eventually had to be removed with counting the rods and rotating it with the rods to remove the instrumentation this took a considerable mount of time. Evaluation of the fusion after doing so, revealed what appeared to be solid arthrodesis at the L4-5 level. Further exposure was then performed at the L5-S1 level with exposure and facet joints and interlaminar region. The L2-3 interspace region was then exposed with removal of scar tissue, and at that point the operative microscope was brought in for revision decompression with additional removal of the partial medial facets on both sides, removal of the remaining inferior laminar edge of L2, and around the superior laminar edge of L3, and then removal of thickened ligamentum flavum in this region and undercutting the facets with decompression bilaterally.With this decompression completed, Floseal placed, then moved to the L5-S1 level. The left facet joint was then removed, along with a left-sided laminectomy to expose the disc space at L5-S1. I accessed the disc space with fluoroscopic control, and then inserted a variety of instruments removed at this material and also javier for placement of the cage. Trials were consistent inserted, and I selected a size cage as noted. Fusion materials had been collected from the decompression and also removal of the facet joints, this is packed within the cage and then inserted into the disc space along with other fusion materials after the disc bases been thoroughly cleaned of disc material some cartilage from the endplates. This completed, S1 pedicle screws were inserted along with new screws at the L5 level, and then torqued down appropriately with fusion materials placed posteriorly on the right at L5-S1. The region had been previously thoroughly irrigated, I then applied vancomycin powder and closed the operative site with interrupted 0 Vicryl sutures in 2 layers followed by layer 2-0 Vicryl sutures and neri for the skin. Sterile dressing was applied, patient tolerated procedure well taken recovery room satisfactory condition. I attest to the content of the Intraoperative Record and any orders documented therein. Any exceptions are noted below.
--- NOTE | 2024-04-12 11:44 | Discharge Summary ---
Date of Service April 12, 2024 Admission HPI Per Admitting Provider 03/11/24: "Patient returns today, 03/11/24, status post his thoracic MRI on March 05 and lower extremity EMG on March 04, continued bilateral lower extremity symptoms with weakness and radicular pain, status post lumbar decompression at T12-L1, L1-2 and L2-3 from November 29 with initial significant improvement in symptoms but after 1 month return of some of the symptomatology. He reports no new changes, he reports taking some medication either pregabalin or gabapentin at 125 mg twice a day, but is unsure of the exact medication this is not part of our records. No changes in examination still with some weakness on toe and heel range and EHL bilaterally for 4+ range. Review of thoracic MRI images from March 05 about the, this is my Sefter interpretation, this reveals the patient not to have any significant stenosis there levels with some disc protrusions but no canal compromise. The laundrette owner images of the cervical spine did not show any significant areas of stenosis. Review of EMG study from Dr. Toure from March 04, 2024, this reveals the patient to have bilateral significant S1 radiculopathy, but also possible L5 radiculopathy. No evidence of neuropathy. Impression: Combination of return of symptoms after initial significant improvement after surgery, MRI findings of the lumbar spine revealing some residual stenosis at L to 3 along with right sided facet spur/cyst at L2-3, bilateral severe foraminal stenosis at L5-S1. Plan: Today I reviewed all the images once again with the patient going over the thoracic MRI but also more importantly more time spent on the lumbar MRI. At t his time I reported that according to the EMG study, I think his symptoms are coming from the lower lumbar level, there might be some limited contribution from the stenosis at L2-3. For this reason the recommended procedure to perform would be a TLIF type procedure at L5-S1 to relieve the foraminal stenosis place a cage with elevation of the disc level along with posterior instrumentation fusion at that level. In addition there to be a separate operative procedure with revision decompression at L2-3 to improve the decompression at that level and remove the recently developed osteophyte spur on the right sided L2-3. Technical details were discussed along with postoperative care, we will have the patient return for follow-up afterwards, he is in agreement with this plan." Admission Exam Per Admitting Provider Exam reveals the patient to have intact strength for hip flexion knee extension and flexion, but he is weak on raising up on his toes and heels and also EHL in the 4 out of 5 range. Negative straight leg raise bilaterally. Principal Diagnosis lumbosacral radiculopathy s/p lumbar fusion Discharge Exam GENERAL: Speech and cognition is intact. Mood and affect is appropriate. Does not appear in acute distress. EXTREMITIES: Distal sensation and pulses intact bilaterally. Motor function intact to bilateral lower extremities. BACK: Dressing clean, dry, and intact. NEURO: CN II-XII grossly intact with no focal deficits noted. Awake, alert, and oriented x 3. Sensation intact to light touch of the bilateral L2-S1 dermatomes. Discharge Data Allergies Allergy/AdvReac Type Severity Reaction Status Date / Time No Known Allergies Allergy Verified 04/08/24 06:40 Consultations 04/08/24 18:54 Consult Hospitalist Routine Procedures Performed Operation Date: 04/08/24 07:30 Actual Procedures p L2-L3 Revision Decompression, L5-S1 Transforaminal Lumbar Interbody Fusion with Posterior Instrumentation, with Spinal Cord Monitoring(Not Applicable) - Wilfredo Angela MD Ordered Studies 04/08/24 [place] lumbar spine 2-3V Routine Hospital Course (1) Lumbosacral radiculopathy: (2) Post-operative state: Plan On April 08, 2024 Gregg arrived at [facility] operating room and underwent an L2-3 revision decompression, removal of L4-5 instrumentation, and L5-S1 transforaminal lumbar interbody fusion with posterior instrumentation and spinal cord monitoring without complications. Patient had general anesthesia for the procedure. Postoperatively, patient was transferred to the orthopedic floor in stable condition and patient practiced early ambulation with PT/OT for DVT prophylaxis as appropriate. Patient's hospital course was uneventful. On postoperative day #1, patient's vital signs were stable and pain was well-controlled. On POD #2, patient was seen and examined and there was continued slow improvement with still some pain of incisional nature, but improvement in lower extremity symptoms versus preoperative. He had motor intact in the lower extremities. Overall, patient was able to participate well with physical therapy, safely performing the necessary ambulation and properly demonstrating ADL tasks. Patient was then discharged home in stable condition, with self-care and assistance of family. Patient will follow-up with Dr. Angela in the ortho spine clinic in 2 to 3 weeks for postoperative care. Total Time Total Time Spent Total Time Spent (In Minutes): Total Time Spent with Patient: Total time spent is greater than 50% in coordination of care (as documented) at patient's floor/unit and/or counseling patient: Discharge Plan Discharge Items Patient Disposition: Home - Self-Care Reason For Visit: Lumbosacral Radiculopathy, Status Post Lumbar Spin Discharge Diagnosis: lumbosacral radiculopathy; s/p lumbar spine surgery Activity: As commented below Lifting: No more than 10 pounds Bathing: May shower/bathe in 3 days Weightbearing: Full weightbearing Non-emergency contact: Surgeon Call non-emergency contact if: your pain is worsening Follow-up/Referrals: Wilfredo Angela MD [Surgeon] - (as scheduled) PCP,[facility] [Primary Care Provider] - Diet: Regular Addtl Attending Provider Instructions: May shower on 3rd day after surgery. You can wash the incision and surgical site with soap and water briefly and then blot dry with a clean towel/cloth. Cover with a new, sterile dry dressing. If unable to change your dressing, then leave hospital dressing intact and cover the area for showering. Do NOT soak incision. No strenuous activity, lifting, or exercise until further instructed. Use the prescribed pain medication as needed for pain relief. No use of NSAIDs (i.e. ibuprofen/Advil, naproxen/Aleve) for at least 2 months after surgery. Pending Studies at Discharge: No Stand-Alone Forms: [facility], Smoking Cessation Medications and DC Order Prescriptions: New oxycodone-acetaminophen [Percocet] 5-325 mg Tablet 1 tab PO Q6H PRN (Reason: pain) Qty: 24 0RF Continued pregabalin [Lyrica] 150 mg capsule 150 mg PO BID Qty: 60 0RF tizanidine 4 mg tablet 4 mg PO BID PRN (Reason: muscle spasticity) Qty: 30 1RF losartan [Cozaar] 50 mg Tablet 50 mg PO QAM hydroxychloroquine [Plaquenil] 200 mg Tablet 200 mg PO BID pregabalin [Lyrica] 200 mg Capsule 200 mg PO TID Held tramadol 50 mg tablet 50 mg PO TID PRN (Reason: pain) Qty: 30 0RF Hold Instructions: Resume on 04/16/24. Discharge Orders: Discharge Order (Routine); Ordered 04/10/24 Ordered By: Oliverio Grossman/Other Patient Handouts: Lumbar Fusion Dc Admission Data Admit Date/Time: 04/08/24 18:54 Attending Provider: Wilfredo Angela Admit Provider: Wilfredo Angela Primary Care Provider: PCP,NO Other Interventions: Discharge Summary Assessment (RN) Last Done: 04/10/24 09:18
== END 2024-04-10 11:48 | disposition home or self-care (01) ==
LOC: ASU 06:10 → 3E 06:10